=== PATIENT | male | born 1945 | race Caucasian/White ===

== ENCOUNTER 2018-04-08 05:21 | Inpatient (IN) | payer BC, OTHER ==
[2018-03-25 13:16] VITALS: Ht 177.8 cm; Wt 114.5 kg
--- NOTE | 2018-03-27 11:22 | PAT Medication Instructions ---
Service Date Mar 27, 2018. Current Home Medication List Cetirizine (Zyrtec), 10 MG PO PRN Cholecalciferol (Vitamin D3), 1 CAP PO QAM Diclofenac (Voltaren), 75 MG PO BID Finasteride (Proscar), 5 MG PO QAM Furosemide (Lasix), 20 MG PO QAM Gabapentin (Neurontin), 300 MG PO QID Hydrocodone/Acetaminophen 5MG/325MG ([place] 5MG/325MG), 1 TABLET PO Q6H PRN for N Multivitamin (Multivitamin), 1 TAB PO QAM Omeprazole (Prilosec), 40 MG PO QAM Probiotic Product (Probiotic), 1 TAB PO QAM Simvastatin (Zocor), 20 MG PO QPM Zolpidem Tartrate (Zolpidem Tartrate), 1 TAB PO HS [Amlodopine/Ator], 1 TAB PO QAM Medication Instructions For Your Scheduled Surgery -Check with your surgeon for instructions: Diclofenac (Voltaren), 75 MG PO BID - Hold the following medications the morning of surgery: Cetirizine (Zyrtec), 10 MG PO PRN Cholecalciferol (Vitamin D3), 1 CAP PO QAM Finasteride (Proscar), 5 MG PO QAM Furosemide (Lasix), 20 MG PO QAM Multivitamin (Multivitamin), 1 TAB PO QAM Probiotic Product (Probiotic), 1 TAB PO QAM - Take the following medications the morning of surgery with a sip of water: Gabapentin (Neurontin), 300 MG PO QID Hydrocodone/Acetaminophen 5MG/325MG ([place] 5MG/325MG), 1 TABLET PO Q6H PRN (if needed, may be taken up to four hours before surgery) Omeprazole (Prilosec), 40 MG PO QAM [Amlodopine/Atorvastatin], 1 TAB PO QAM *if this medication changes please call - Take the following medications as scheduled the night before surgery: Cetirizine (Zyrtec), 10 MG PO PRN (if needed) Gabapentin (Neurontin), 300 MG PO QID Hydrocodone/Acetaminophen 5MG/325MG ([place] 5MG/325MG), 1 TABLET PO Q6H PRN (if needed) Simvastatin (Zocor), 20 MG PO QPM Zolpidem Tartrate (Zolpidem Tartrate), 1 TAB PO HS If you have any questions please call us at [phone] or [phone] or [phone]
[2018-03-27 11:59] LABS: BASO % 0.3 %; BASO ABS # 0.02 K/uL (0-0.2); EOS % 1.2 %; EOS ABS # 0.07 K/uL (0-0.5); HEMATOCRIT 45.6 % (42-52); HEMOGLOBIN 15.3 g/dL (14.0-18.0); IG# 0.02 K/uL (0.00-0.02); LYMPH % 20.2 %; LYMPH ABS # 1.17 K/uL (1.2-3.4); MEAN CELL VOLUME 89.6 fL (80-100); MEAN CORPUSCULAR HEMOGLOBIN 30.1 pg (25-34); MEAN CORPUSCULAR HGB CONC 33.6 g/dl (32-36); MEAN PLATELET VOLUME 9.9 fL (7.4-10.4); MONO % 7.4 %; MONO ABS # 0.43 K/uL (0.11-0.59); NEUT % 70.6 %; NEUT ABS # 4.09 K/uL (1.4-6.5); PLATELET COUNT 197 K/uL (130-400); RED CELL DISTRIBUTION WIDTH CV 13.5 % (11.5-14.5); RED CELL DISTRIBUTION WIDTH SD 44.2 fL (36.4-46.3)
[2018-03-27 12:13] LABS: PTT PATIENT 25.5 SECONDS (21.0-31.0)
--- NOTE | 2018-03-27 12:16 | DIAGNOSTIC IMAGING REPORT ---
CHEST 2 VIEWS ROUTINE HISTORY: 72 years-old Male PAT preoperative exam. No acute chest complaints. COMPARISON: None available TECHNIQUE: PA and lateral views of the chest FINDINGS: Cardiac silhouette is upper limits of normal in size. Large retrocardiac opacity with central lucency suggests a large hiatal hernia with partially intrathoracic stomach. No pneumothorax, pleural effusion or overt pulmonary edema. Mild convex left curvature about the mid thoracic spine. Degenerative changes of the shoulders and spine are noted. IMPRESSION: 1. No acute process of the chest. 2. Large hiatal hernia with partially intrathoracic stomach. The above report was generated using voice recognition software. It may contain grammatical, syntax or spelling errors. Electronically signed by: Vaibhav Hoang M.D. 03/27/2018 12:15 PM Dictated Date/Time: 03/27/2018 12:13 PM
[2018-03-27 13:40] LABS: CALCIUM 9.2 mg/dl (8.5-10.1); CREATININE 0.87 mg/dl (0.60-1.40); POTASSIUM 4.1 mmol/L (3.5-5.1)
[~2018-04-08] VITALS: Ht 177.8 cm; Wt 114.5 kg
[2018-04-08] VITALS (8 sets, daily range): BP systolic 119–155; BP diastolic 78–97; PULSE 70–86; TEMP 36.2–36.8; O2SAT 95–99
[~2018-04-08 05:21] MED LIST: AMLO5CAP2 PO; CETI10TA84 PO; CHOL2000 PO; DICL-201 PO; FINA5TAB PO; FURO-85 PO; GABA-113 PO; HYDR-5688 PO; MISCCAP80 PO; MULT-506 PO; PRLSR20 PO; SIMV20TA5 PO; ZOLP10TA6 PO
[2018-04-08] MEDS ORDERED: LACTATED RINGER'S 1000ML 1,000 ML IV SCH (06:00)
[2018-04-08] MEDS ORDERED: GABAPENTIN 300 MG CAP PO SCH (06:00)
[2018-04-08] MEDS ORDERED: ACETAMINOPHEN 500 MG TAB PO SCH (06:00)
[2018-04-08] MEDS ORDERED: CeleBREX 200 MG CAP PO SCH (06:00)
[2018-04-08] MEDS ORDERED: CEFAZOLIN 2000MG IV PUSH 15 ML IV SCH (06:00)
[2018-04-08] MEDS ORDERED: MIDAZOLAM HCL 1 MG/ML 2ML VIAL ONE (06:41)
[2018-04-08] MEDS ORDERED: FENTANYL CITRATE INJ 50 MCG/1 ML 2 ML VIAL ONE (06:42)
[2018-04-08] MEDS ORDERED: LIDOCAINE HCL 2% 2 ML VIAL (20MG/ML) ONE (06:43)
[2018-04-08] MEDS ORDERED: PROPOFOL IV EMULSION 10 MG/ML 20 ML VIAL ONE (06:43)
[2018-04-08] MEDS ORDERED: ROCURONIUM BROMIDE 10 MG/ML 5 ML VIAL ONE ×2 (06:44→08:58)
[2018-04-08] MEDS ORDERED: DEXAMETHASONE SOD INJ 4 MG/ML VIAL ONE (06:47)
[2018-04-08] MEDS ORDERED: BACITRACIN 50000 UNIT VIAL ONE (06:51)
[2018-04-08] MEDS ORDERED: BUPIVACAINE/EPINEPHRINE 0.5% MPF 1:200,000 30 ML VIAL ONE (06:51)
[2018-04-08] MEDS ORDERED: BUPIVACAINE 0.5 % 5 MG/1 ML PF 10ML VIAL ONE ×2 (06:52→08:41)
[2018-04-08] MEDS ORDERED: BUPIVACAINE LIPOSOME 1/3% 266 MG/20 ML VIAL ONE ×2 (06:53→08:41)
[2018-04-08] MEDS ORDERED: SODIUM CHLORIDE 0.9% PF 50 ML VIAL ONE ×2 (06:53→08:41)
[2018-04-08] MEDS ORDERED: HYDROmorphone INJ 0.5 MG/0.5 ML SYR IV PRN ×2 (07:15→13:00)
[2018-04-08] MEDS ORDERED: FENTANYL CITRATE INJ 50 MCG/1 ML 2 ML VIAL IV PRN (07:15)
[2018-04-08] MEDS ORDERED: ONDANSETRON INJ 2 MG/ML 2 ML VIAL IV PRN ×2 (07:15→11:00)
[2018-04-08] MEDS ORDERED: ATROPINE SULFATE 0.1 MG/ML 5ML SYR IV PRN (07:15)
[2018-04-08] MEDS ORDERED: EpHEDrine SULFATE INJ 50 MG/ML AMP IV PRN (07:15)
--- NOTE | 2018-04-08 07:34 | History & Physical Bridge Note ---
H&P Re-Evaluation Bridge Note: I have examined the patient, reviewed the History & Physical and in the interval since the performance of the History & Physical I have noted the following changes of clinical significance: No changes noted
--- NOTE | 2018-04-08 07:35 | History and Physical ---
History & Physical Date Apr 08, 2018. Chief Complaint Back and leg pain History of Present Illness The patient is a 72 year old male with complaints of back and leg pain Additional History Hepatic Disease: No Endocrine Disorder: No Kidney Disease: No Hypertension: Yes Heart Disease: No Bleeding Tendencies: No Infectious Diseases: No Allergies Coded Allergies: No Known Allergies (Unverified , 04/08/18) Home Medications Scheduled Amlodipine/Benazepril (Lotrel 5MG/20MG), 1 CAP PO QAM Cetirizine (Zyrtec), 10 MG PO PRN Cholecalciferol (Vitamin D3), 1 CAP PO QAM Diclofenac (Voltaren), 75 MG PO BID Finasteride (Proscar), 5 MG PO QAM Furosemide (Lasix), 20 MG PO QAM Gabapentin (Neurontin), 300 MG PO QID Multivitamin (Multivitamin), 1 TAB PO QAM Omeprazole (Prilosec), 40 MG PO QAM Probiotic Product (Probiotic), 1 TAB PO QAM Simvastatin (Zocor), 20 MG PO QPM Zolpidem Tartrate (Zolpidem Tartrate), 1 TAB PO HS Scheduled PRN Hydrocodone/Acetaminophen 5MG/325MG ([place] 5MG/325MG), 1 TABLET PO Q6H PRN for N Physical Examination Skin: warm/dry, no rash Eyes: normal inspection, EOMI, sclerae normal ENT: normal ENT inspection, pharynx normal Head: normocephalic, atraumatic Neck: supple, no adenopathy, trachea midline Respiratory/Chest: lungs clear, normal breath sounds, no respiratory distress Cardiovascular: regular rate, rhythm, no edema, no murmur Abdomen / GI: normal bowel sounds, non tender Back: normal inspection Extremities: normal inspection, normal range of motion Neurologic/Psych: no motor/sensory deficits, alert, normal reflexes, oriented x 3 Diagnosis Lumbar spinal stenosis with neurogenic claudication Plan of Treatment L3-S1 decompression and fusion
[2018-04-08] MEDS ORDERED: BACITRACIN 50000 UNIT VIAL IR ONE (08:13)
[2018-04-08] MEDS ORDERED: BUPIVACAINE/EPINEPHRINE 0.25% 1:200,000 30 ML VIAL INJ ONE (08:14)
[2018-04-08] MEDS ORDERED: GLYCOPYRROLATE INJ 0.2 MG/ML VIAL ONE (08:18)
[2018-04-08] MEDS ORDERED: NEOSTIGMINE METHYLSULFATE 1 MG/ML 10ML VIAL ONE (08:18)
[2018-04-08] MEDS ORDERED: EpHEDrine SULFATE 50MG/5ML SYR ONE (08:30)
[2018-04-08] MEDS ORDERED: HYDROmorphone INJ 2 MG/ML SYR/VIAL ONE (09:18)
[2018-04-08] MEDS ORDERED: FLOSEAL HEMOSTATIC MATRIX 10ML TOP ONE (10:27)
--- NOTE | 2018-04-08 10:48 | [facility] Operative Report ---
Operative Report Operative Date Apr 08, 2018. Pre-Operative Diagnosis Lumbar spinal stenosis with neurogenic claudication Post-Operative Diagnosis Lumbar spinal stenosis with neurogenic claudication Procedure(s) Performed 1. Lumbar decompression mucosectomy foraminotomies L2-3 L3-4 L4-5 L5-S1. #2 posterior spinal fusion L3-4 L4-5 L5-S1. #3 posterior posterior segmental instrumentation L3-4 L4-5 L5-S1. #4 interbody fusion L4-5 L5-S1. #5 placement of titanium 9 x 26 mm cage at L4-5 and 12 x 26 at L5-S1. #6 placement of local autograft in the posterior gutters. #7 placement of infuse collagen sponge master graft the posterior gutters and ostial amp in the interbody space. Surgeon Sand Mixer Machine Surgeon(s) VANDANA Blackman Estimated Blood Loss 600ML Findings Severe spinal stenosis Specimens None Anesthesia Type General Description of Procedure Patient was met with preoperatively case discussed all questions addressed. After informed consent obtained patient was taken to the operative suite underwent intubation and placed in prone position injection table on top of the Ozzie frame. All bony promises well-padded eyes inspected to ensure no external pressure placed upon the. This point the lumbar spine was prepped and draped in normal sterile fashion. Sharp dissection the assistance of fluoroscopy was performed down to and exposing the lamina and transverse processes of L3-L4-L5 and sacral ala bilaterally. From caudocephalad fashion complete laminectomy of L5 for 3 was performed as well as partial laminectomy of L2 addressing severe lateral recess and foraminal disease. Pedicle screws were then placed 3 L4-L5 and sacral ala bilaterally. Through a transforaminal approach on the left complete discectomy of L5-S1 was performed endplates could to subcortical bleeding bone and a 12 x 26 mm titanium cage with ostium bone graft tapped in position. Then proceeded L4-5 and again through a transfer approach and left complete discectomy performed endplates created to subcortical bleeding bone and 9 x 26 mm titanium cage filled with ostium bone graft tapped in position. The rods were then placed compressed locked in final position bilaterally. The transverse processes of L3-L4-L5 and sacral ala burred to subcortical bleeding bone. Infuse collagen sponge master graft local autograft was placed in the posterior gutters. Cross-link locked in position. Approximately 160 cc of Exparel placed in the musculature and a 15 round LUCI drain inserted. Incision was then closed with 1 Vicryl fascia 2-0 Vicryl substantially of 4 Monocryl Jasmina Robertson was present throughout the entire procedure involved in patient positioning complex portions of the surgery and fashion closure. I attest to the content of the Intraoperative Record and any orders documented therein. Any exceptions are noted below.
[2018-04-08] MEDS ORDERED: METOCLOPRAMIDE HCL INJ 5 MG/ML 2 ML VIAL IV PRN (11:00)
[2018-04-08] MEDS ORDERED: MAGNESIUM HYDROXIDE SUSP 30 ML UDC PO PRN (11:00)
[2018-04-08] MEDS ORDERED: FAMOTIDINE 20 MG TAB PO PRN (11:00)
[2018-04-08] MEDS ORDERED: SOD PHOSPHATE/SOD BIPHOSPHATE ENEMA 132 ML BTL PR PRN (11:00)
[2018-04-08] MEDS ORDERED: DO NOT ADMINISTER PNEUMOCOCCAL VACCINE PRN (11:00)
[2018-04-08] MEDS ORDERED: DO NOT ADMINISTER FLU VACCINE PRN (11:00)
[2018-04-08] MEDS ORDERED: LORAZEPAM INJ 0.5 MG in SYRINGE 0.75 ML IV PRN (11:00)
[2018-04-08] MEDS ORDERED: NALOXONE HCL 0.4 MG/1 ML VIAL/CARP IV PRN (11:00)
[2018-04-08] MEDS ORDERED: PROMETHAZINE HCL INJ 12.5 MG in SODIUM CHLORIDE 0.9% 50ML 50 ML IV PRN (11:00)
[2018-04-08] MEDS ORDERED: ACETAMINOPHEN IV 100 ML IV PRN (11:00)
[2018-04-08] MEDS ORDERED: hydrOXYzine HCL 25 MG TAB PO PRN (11:00)
[2018-04-08] MEDS ORDERED: LORAZEPAM 0.5 MG TAB PO PRN (11:00)
[2018-04-08] MEDS ORDERED: CETIRIZINE HCL 10 MG TAB PO PRN (11:00)
[2018-04-08] MEDS ORDERED: BISACODYL 10 MG SUPP PR PRN (11:00)
[2018-04-08] MEDS ORDERED: ALUMINUM/MAGNESIUM SUSP 30 ML UDC PO PRN (11:00)
--- NOTE | 2018-04-08 11:00 | DIAGNOSTIC IMAGING REPORT ---
LUMBAR SPINE 2 OR 3 VIEW CLINICAL HISTORY: L3-S1 DECOMPRESSION AND FUSION COMPARISON STUDY: No previous studies for comparison. Fluoroscopy time: 28.3 seconds. FINDINGS: 3 fluoroscopic images demonstrate L4-L5 and L5-S1 discectomies with interbody spacer placement. Posterior decompression is noted with bilateral pedicle screws at the L3, L4, L5 and S1 levels with interconnecting rods. IMPRESSION: Fluoroscopic images demonstrating L4-L5 and L5-S1 discectomies with posterior decompression and L3-S1 bilateral pedicle screw fusion. Electronically signed by: Kenji Cardoso M.D. 04/08/2018 10:58 AM Dictated Date/Time: 04/08/2018 10:57 AM
[2018-04-08] MEDS: SODIUM CHLORIDE 0.9% 1000ML 1,000 ML IV SCH ×3 (12:40→23:53)
--- NOTE | 2018-04-08 13:10 | Anesthesiology Progress Note ---
Anesthesia Post Op Note Date & Time Apr 08, 2018 at 13:10 Vital Signs Pain Intensity: 5.0 Vital Signs Past 12 Hours Date Time Temp Pulse Resp B/P (MAP) Pulse Ox O2 Delivery O2 Flow Rate FiO2 04/08/18 12:37 Nasal Cannula 4.0 04/08/18 12:33 97 Nasal Cannula 4.0 04/08/18 12:28 36.2 77 18 155/78 (103) 99 Nasal Cannula 4.0 04/08/18 12:00 36.5 73 18 136/90 (105) 97 Nasal Cannula 4.0 04/08/18 11:45 37.1 67 16 145/83 97 Oxymask 8 04/08/18 11:35 70 16 132/79 97 Oxymask 8 04/08/18 11:25 71 16 125/90 98 Oxymask 8 04/08/18 11:15 68 16 134/73 96 Oxymask 15 04/08/18 11:07 37.6 75 16 114/72 93 Oxymask 15 04/08/18 06:06 36.6 70 20 135/95 96 Room Air Notes Mental Status: alert / awake / arousable, participated in evaluation Pt Amnestic to Procedure: Yes Nausea / Vomiting: adequately controlled Pain: adequately controlled Airway Patency, RR, SpO2: stable & adequate BP & HR: stable & adequate Hydration State: stable & adequate Anesthetic Complications: no major complications apparent
[2018-04-08] MEDS: GABAPENTIN 300 MG CAP PO SCH ×3 (13:22→21:36)
--- NOTE | 2018-04-08 14:20 | Medical Consult ---
Consultation Date of Consultation: Apr 08, 2018. Attending Physician: Teddy Jiménez D.O. Reason for Consultation: post op medical management History of Present Illness This is a 72yo M with a PMH of HTN, HLD, GERD and lumbar stenosis who is POD #0 s/p L3-S1 decompression fusion by Dr. Jiménez. Patient is doing well post- operatively. States that back pain is a 6/10 but had just been given pain medication by nurse. Denies any fever, chills, lightheadedness, headache, visual changes, sore throat, CP, SOB, abdominal pain, nausea, vomiting, dysuria or LE swelling. PCP is Dr. Mohr in [place]. Denies any personal history of heart disease, DM II or DVT/PE. States that he just had an echo performed pre- operatively due to a new systolic murmur. Was told there was "nothing to worry about" with echo results. Past Medical/Surgical History Reported Home Medications Medications Dose Route/Sig Max Daily Dose Days Date Category Dose Instructions Lotrel 5MG/20MG (Amlodipine/Benazepril HCl) 5 Mg/20 Mg Cap 1 Cap PO QAM 04/05/18 Reported Zyrtec (Cetirizine HCl) 10 Mg Tab 10 Mg PO PRN 03/25/18 Reported Vitamin D3 (Cholecalciferol) 2,000 Unit Cap 1 Cap PO QAM 90 03/25/18 Reported Probiotic (Probiotic Product) 1 Cap Cap 1 Tab PO QAM 03/25/18 Reported Multivitamin (Multivitamins) Tab 1 Tab PO QAM 03/25/18 Reported Lasix (Furosemide) 20 Mg Tab 20 Mg PO QAM 03/25/18 Reported Neurontin (Gabapentin) 300 Mg Cap 300 Mg PO QID 03/25/18 Reported Zolpidem Tartrate 10 Mg Tab 1 Tab PO HS 30 03/25/18 Reported Zocor (Simvastatin) 20 Mg Tab 20 Mg PO QPM 03/25/18 Reported Prilosec (Omeprazole) 20 Mg Capcr 40 Mg PO QAM 03/25/18 Reported [place] 5MG/325MG (Acetaminophen/Hydrocodone Bitart) Tab 1 Tablet PO Q6H PRN 03/25/18 Reported PRN PAIN Proscar (Finasteride) 5 Mg Tab 5 Mg PO QAM 03/25/18 Reported Voltaren (Diclofenac Sodium) 75 Mg Tabcr 75 Mg PO BID 03/25/18 Reported WITH FOOD Social History Smoking Status: Former Smoker Alcohol Use: occasionally Marital Status: Housing Status: lives with significant other Allergies Coded Allergies: No Known Allergies (Unverified , 04/08/18) Home Medications Medical Problems: (1) BPH (benign prostatic hyperplasia) Status: Chronic (2) GERD (gastroesophageal reflux disease) Status: Chronic (3) HLD (hyperlipidemia) Status: Chronic (4) HTN (hypertension) Status: Chronic (5) Lumbar stenosis with neurogenic claudication Status: Chronic Surgical Problems: (1) H/O total hip arthroplasty Status: Resolved (2) H/O total knee replacement Status: Resolved (3) History of appendectomy Status: Resolved Current Inpatient Medications Current Inpatient Medications Medications (Trade) Dose Ordered Sig/Amara Route Start Time Stop Time Status Last Admin Dose Admin Ondansetron HCl (Zofran Inj) 4 mg ONE PRN IV 04/08/18 07:15 05/08/18 07:14 Promethazine HCl 12.5 mg/Sodium Chloride 50.5 ml @ 202 mls/hr Q6H PRN IV 04/08/18 11:00 05/08/18 10:59 Ondansetron HCl (Zofran Inj) 4 mg Q6H PRN IV 04/08/18 11:00 05/08/18 10:59 Metoclopramide HCl (Reglan Inj) 10 mg Q6H PRN IV 04/08/18 11:00 05/08/18 10:59 Lorazepam (Ativan Tab) 0.5 mg Q8H PRN PO 04/08/18 11:00 05/08/18 10:59 Lorazepam 0.5 mg/ Syringe 1 ml @ 1 mls/min Q8H PRN IV 04/08/18 11:00 05/08/18 10:59 Pneumococcal Polysaccharide Vaccine 1 ea PRN PRN N/A 04/08/18 11:00 05/08/18 10:59 Influenza Virus Vacc Triv Types A&B 1 ea PRN PRN N/A 04/08/18 11:00 05/08/18 10:59 Polyethylene (Miralax Powder Packet) 17 gm Q6 PO 04/10/18 06:00 05/10/18 05:59 Bisacodyl (Dulcolax Supp) 10 mg DAILY PRN VA 04/08/18 11:00 05/08/18 10:59 Magnesium Hydroxide (Milk Of Magnesia Susp) 30 ml DAILY PRN PO 04/08/18 11:00 05/08/18 10:59 Hydromorphone HCl (Dilaudid Inj) 0.5-1mg prn moder... Q3H PRN IV 04/08/18 13:00 04/22/18 12:59 Oxycodone HCl (Roxicodone Immediate Rel Tab) 5-10mg prn moderate to sev... Q4H PRN PO 04/08/18 13:00 04/22/18 12:59 Cefazolin Sodium 2000 mg/Syringe 15 ml @ 3.75 mls/ min Q8H IV 04/08/18 16:00 04/09/18 00:03 Sodium Chloride 1,000 ml @ 150 mls/hr Q6H40M IV 04/08/18 10:48 05/08/18 10:47 04/08/18 12:40 150 MLS/HR Acetaminophen (Tylenol Tab) 1,000 mg Q8H PRN PO 04/08/18 11:00 05/08/18 10:59 Acetaminophen 100 ml @ 400 mls/hr Q8H PRN IV 04/08/18 11:00 05/08/18 10:59 Naloxone HCl (Narcan Inj) 0.1 mg Q5M PRN IV 04/08/18 11:00 05/08/18 10:59 Senna/Docusate Sodium (Senokot S Tab) 2 tab HS PO 04/08/18 21:00 05/08/18 20:59 Sodium Biphosphate/ Sodium Phosphate (Fleet Enema) 132 ml ONE PRN VA 04/08/18 11:00 05/08/18 10:59 Hydroxyzine HCl (Vistaril Tab) 25 mg Q8H PRN PO 04/08/18 11:00 05/08/18 10:59 Al Hydroxide/Mg Hydroxide (Maalox Susp) 30 ml Q6H PRN PO 04/08/18 11:00 05/08/18 10:59 Famotidine (Pepcid Tab) 20 mg Q12 PRN PO 04/08/18 11:00 8/22/18 10:59 Diphenhydramine HCl (Benadryl Cap) 25 mg Q6H PRN PO 04/08/18 11:00 05/08/18 10:59 Cetirizine HCl (zyrTEC TAB) 10 mg DAILY PRN PO 04/08/18 11:00 05/08/18 10:59 Finasteride (Proscar Tab) 5 mg QAM PO 04/09/18 09:00 05/09/18 08:59 Furosemide (Lasix Tab) 20 mg QAM PO 04/09/18 09:00 05/09/18 08:59 Gabapentin (Neurontin Cap) 300 mg QID PO 04/08/18 13:00 05/08/18 12:59 04/08/18 13:22 300 MG Multivitamins (Multivitamin Tab) 1 tab QAM PO 04/09/18 09:00 05/09/18 08:59 Simvastatin (Zocor Tab) 20 mg QPM PO 04/08/18 21:00 05/08/18 20:59 Zolpidem Tartrate (Ambien Tab) 10 mg HS PO 04/08/18 21:00 05/08/18 20:59 Amlodipine Besylate (Norvasc Tab) 5 mg QAM PO 04/09/18 09:00 05/09/18 08:59 Pantoprazole Sodium (Protonix Tab) 40 mg QAM PO 04/09/18 09:00 05/09/18 08:59 Enalapril Maleate (Vasotec Tab) 20 mg DAILY PO 04/09/18 09:00 05/09/18 08:59 Review of Systems Constitutional: No fever, No chills, No weakness, No fatigue Eyes: No worsening of vision Respiratory: No cough, No wheezing, No shortness of breath, No dyspnea on exertion Cardiovascular: No chest pain, No edema, No palpitations Abdomen: No pain, No nausea, No vomiting, No diarrhea, No constipation, No GI bleeding Musculoskeletal: + problem reported (resting left hand tremor), No joint pain, No muscle pain Neurologic: No weakness, No numbness/tingling Integumentary: No rash Physical Exam Date Time Temp Pulse Resp B/P (MAP) Pulse Ox O2 Delivery O2 Flow Rate FiO2 04/08/18 13:00 36.8 85 18 133/96 (108) 96 Nasal Cannula 4.0 7/23/18 12:37 Nasal Cannula 4.0 04/08/18 12:33 97 Nasal Cannula 4.0 04/08/18 12:28 36.2 77 18 155/78 (103) 99 Nasal Cannula 4.0 04/08/18 12:00 36.5 73 18 136/90 (105) 97 Nasal Cannula 4.0 04/08/18 11:45 37.1 67 16 145/83 97 Oxymask 8 04/08/18 11:35 70 16 132/79 97 Oxymask 8 04/08/18 11:25 71 16 125/90 98 Oxymask 8 04/08/18 11:15 68 16 134/73 96 Oxymask 15 04/08/18 11:07 37.6 75 16 114/72 93 Oxymask 15 04/08/18 06:06 36.6 70 20 135/95 96 Room Air General Appearance: WD/WN, no apparent distress, + obese Head: normocephalic, atraumatic Eyes: normal inspection, PERRL, sclerae normal ENT: normal ENT inspection, hearing grossly normal, pharynx normal (moist mucous membranes ) Neck: supple, thyroid normal, trachea midline Respiratory/Chest: chest non-tender, lungs clear, normal breath sounds, no respiratory distress, no accessory muscle use Cardiovascular: regular rate, rhythm, normal peripheral pulses, + systolic murmur Abdomen/GI: non tender, soft, no organomegaly Back: normal inspection, + pertinent finding (Lumbar surgical dressing clean, dry, intact. Drain visualized) Extremities/Musculoskelatal: normal inspection, no calf tenderness, no pedal edema, + pertinent finding (SCDs) Neurologic/Psych: no motor/sensory deficits, alert, normal mood/affect, oriented x 3 Skin: normal color, warm/dry, no rash Laboratory Results Pertinent pre-op labs (03/27/18): Item Value Date Time White Blood Count 5.80 K/uL 03/27/18 1137 Hemoglobin 15.3 g/dL 03/27/18 1137 Platelet Count 197 K/uL 03/27/18 1137 Sodium Level 138 mmol/L 03/27/18 1137 Potassium Level 4.1 mmol/L 03/27/18 1137 Chloride Level 104 mmol/L 03/27/18 1137 Carbon Dioxide Level 28 mmol/L 03/27/18 1137 Anion Gap 6.0 mmol/L 03/27/18 1137 Blood Urea Nitrogen 16 mg/dl 03/27/18 1137 Creatinine 0.87 mg/dl 03/27/18 1137 Estimated GFR (Non- 86.8 03/27/18 1137 Assessment & Plan This is a 72yo M with a PMH of HTN, HLD, GERD and lumbar stenosis who is POD #0 s/p L3-S1 decompression fusion by Dr. Jiménez. Lumbar stenosis s/p decompression fusion: -POD#0 s/p L3-S1 decompression fusion by Dr. Jiménez -Doing well post-operatively -Per ortho for pain control, wound care, anticoagulation and activities -Monitor H&H, continue incentive spirometry, PT/OT when appropriate HTN -Normotensive now -Continue amlodipine/benazepril tomorrow AM -Hold AM Lasix, re-evaluate fluid status HLD -Continue statin GERD -Cont PPI BPH -Continue Proscar PCP: Fani Street) Dispo: Per ortho Patient seen in collaboration with Dr. Pearce. Please see addendum. Attending addendum The patient was seen and examined in medical floor He is a status post lumbar decompression and fusion He denies any symptoms other than some back pain and numbness involving the legs His preop labs and studies evaluated Denies any acute symptoms as of today On examination No apparent distress at rest Hemodynamically stable Chest-clear to auscultate bilaterally Heart-regular, no murmur appreciated Abdomen-benign, nontender, no organomegaly Extremities-trace edema bilaterally Preoperative labs, EKG and imaging studies reviewed Has history of hypertension, hyperlipidemia and prostatic hypertrophy-without any acute symptoms Agree with assessment and plan as outlined above Dr. Andrea Pearce Thank you for this consultation. We will follow the patient with you during their hospital stay. You can reach a member of the [facility] Hospitalist Team 09/04 via pager @ .
[2018-04-08] MEDS: OXYCODONE HCL IR 5 MG TAB (IMMEDIATE RELEASE) PO PRN ×2 (15:55→19:45)
[2018-04-08] MEDS: CEFAZOLIN IV 2,000 MG in SYRINGE 0 ML IV SCH ×2 (15:56→23:53)
[2018-04-08] MEDS ORDERED: AMLO1CAP PO (16:16)
[2018-04-08] MEDS: DOCUSATE SODIUM/SENNA 50/8.6MG TAB PO SCH (21:36)
[2018-04-08] MEDS: SIMVASTATIN 20 MG TAB PO SCH (21:36)
[2018-04-08] MEDS: ZOLPIDEM TARTRATE 10 MG TAB PO SCH (21:56)
[2018-04-09] MEDS: OXYCODONE HCL IR 5 MG TAB (IMMEDIATE RELEASE) PO PRN ×4 (00:03→18:39)
[2018-04-09 03:00] VITALS: BP 104/67; PULSE 81; TEMP 37; O2SAT 95
[2018-04-09] MEDS: SODIUM CHLORIDE 0.9% 1000ML 1,000 ML IV SCH (05:57)
[2018-04-09] MEDS ORDERED: NURSING VERBAL MED ORDER ONE (06:00)
[2018-04-09 06:48] LABS: HEMATOCRIT 37.2 % (42-52); HEMOGLOBIN 11.9 g/dL (14.0-18.0); IG# 0.03 K/uL (0.00-0.02); LYMPH % 8.5 %; LYMPH ABS # 0.93 K/uL (1.2-3.4); MEAN CELL VOLUME 89.9 fL (80-100); MEAN CORPUSCULAR HEMOGLOBIN 28.7 pg (25-34); MEAN PLATELET VOLUME 10.1 fL (7.4-10.4); NEUT % 81.2 %; NEUT ABS # 8.94 K/uL (1.4-6.5); PLATELET COUNT 203 K/uL (130-400); RED CELL DISTRIBUTION WIDTH CV 13.8 % (11.5-14.5); RED CELL DISTRIBUTION WIDTH SD 45.7 fL (36.4-46.3)
[2018-04-09 07:08] VITALS: BP 119/80; PULSE 84; TEMP 36.9; O2SAT 92
[2018-04-09 07:25] LABS: CALCIUM 8.4 mg/dl (8.5-10.1); CREATININE 0.83 mg/dl (0.60-1.40); POTASSIUM 4.3 mmol/L (3.5-5.1)
[2018-04-09] MEDS: BENAZEPRIL HCL 10 MG TAB PO SCH (08:25)
[2018-04-09] MEDS: GABAPENTIN 300 MG CAP PO SCH ×4 (08:26→21:13)
[2018-04-09] MEDS ORDERED: FUROSEMIDE 20 MG TAB PO SCH (09:00)
[2018-04-09] MEDS ORDERED: ENALAPRIL MALEATE 10 MG TAB PO SCH (09:00)
--- NOTE | 2018-04-09 09:23 | Anesthesiology Progress Note ---
Anesthesia Post Op Note Date & Time Apr 09, 2018 at 09:22 Vital Signs Pain Intensity: 7.0 Vital Signs Past 12 Hours Date Time Temp Pulse Resp B/P (MAP) Pulse Ox O2 Delivery O2 Flow Rate FiO2 04/09/18 07:08 36.9 84 18 119/80 (93) 92 Room Air 04/09/18 03:00 37.0 81 16 104/67 (79) 95 Room Air 04/08/18 23:57 Room Air 04/08/18 23:01 36.8 79 16 119/81 (94) 95 Room Air Notes Mental Status: alert / awake / arousable, participated in evaluation Pt Amnestic to Procedure: Yes Nausea / Vomiting: adequately controlled Pain: adequately controlled, improving with treatment Airway Patency, RR, SpO2: stable & adequate BP & HR: stable & adequate Hydration State: stable & adequate Anesthetic Complications: no major complications apparent
[2018-04-09] MEDS: MULTIVITAMIN TAB PO SCH (10:02)
[2018-04-09] MEDS: AMLODIPINE BESYLATE 5 MG TAB PO SCH (10:02)
[2018-04-09] MEDS: FINASTERIDE 5 MG TAB PO SCH (10:03)
[2018-04-09] MEDS: PANTOprazole SOD 40 MG TAB PO SCH (10:03)
[2018-04-09] MEDS ORDERED: RXC5 PO (10:45)
--- NOTE | 2018-04-09 10:46 | Discharge Instructions ---
Discharge Instructions Date of Service Apr 09, 2018. Admission Reason for Admission: Lumbar Spinal Stenosis Discharge Discharge Diagnosis / Problem: lumbar stenosis Discharge Goals Goal(s): Improve function Activity Recommendations Activity Limitations: per Instructions/Follow-up section . Instructions / Follow-Up Instructions / Follow-Up ACTIVITY RECOMMENDATIONS: SELF CARE INSTRUCTIONS AFTER THORACIC/LUMBAR FUSIONS 1. You may walk to your tolerance. It is good exercise for your legs and back. Expect some back and intermittent leg aches and pains. 2. You may perform "counter-top" level activities (make a sandwich, kadeem with a project, etc.). 3. No bending or lifting of more than 10 pounds or back twisting of any nature (roll like a log when turning in bed). 4. You may ride in a car for 20-30 minutes at a time. No driving until after your first visit with your doctor. 5. Frequent changes of position and restricting sitting to 30 minutes at a time will help limit the amount of back spasms and stiffness you may experience. 6. You may discontinue the use of ambulatory aids (cane, crutches, etc.) once your strength and confidence allow. 7. You may dip stand loader the shower and let water strike your incision when you arrive home at least once daily. Do not take a tub bath, sit in a hot tub or go into a swimming pool until after your first recheck in the office. SPECIAL CARE INSTRUCTIONS: VERY IMPORTANT TO READ AND REVIEW A. Your surgical incision has been closed with a cosmetic suture under the skin that will dissolve in about 6 weeks. In 14 days, you can use a pair of clean scissors and cut the suture that is left outside of the skin at the ends of your incision. 1. The small skin tapes can be removed 7 days after surgery if they have not fallen off by that point. 2. You may keep the wound open to air as much as possible to promote healing after post-op day number 5 unless told otherwise by your doctor. 3. If you think the wound looks like it is becoming infected (redness or worsening drainage) and/or you are experiencing fever, chill or worsening back pain and muscle spasms, contact the office so that we may evaluate you as soon as possible. B. Complications are uncommon, but please contact us if you have any signs or symptoms of: 1. wound infection (fever higher than 102.5 degrees F, redness, separation of wound, drainage, or increasing pain from the incision) 2. blood clots in legs (pain, swelling, redness and warmth in legs) 3. urinary tract infection (fever higher than 102.5 degrees F, burning upon urination or increased frequency of urination) 4. nerve problems (inability to walk on your toes or heels, numbness, loss of bowel or bladder control) 5. any other symptoms that concern you C. Please call the office at if you have any concerns or questions about your operation or recovery. D. No smoking! Smoking drastically decreases the chance of a solid fusion. E. Do not take any anti-inflammatory medications (Indocin, Advil, Motrin, Aspirin, Naprosyn, etc.) as these may inhibit the chance of a solid fusion. Tylenol is okay to take for pain. MANAGING PAIN AFTER SPINAL SURGERY 1. Narcotic medication is intended for short-term use and will be provided for surgical pain. Surgical pain usually lasts for a period of 4-6 weeks. Narcotic medication includes Percocet, Vicodin, Darvocet, Tylenol #3 or Lortab. 2. Longer-term pain is more appropriately treated with non-narcotic medication such as Tylenol ES. 3. Muscle spasm is not appropriately treated with narcotics. Muscle relaxers such as Soma, Flexeril or Skelaxin can be used along with Tylenol ES. 4. Remember that we all live with some "aches and pains". This is not unusual or uncommon after an injury or as we get older. a. Back pain is expected and may include muscle spasms for 4 to 6 weeks after surgery. The pain should gradually improve. If the pain worsens for no apparent reason, please contact the office. b. Intermittent leg pain may also be experienced and should not be concerned about unless it worsens for no apparent reason. If so, please contact the office. 5. We will provide appropriate medication within the normal guidelines of their prescribed use. We will also be very cautious and aware of potential abuse and extended duration of patients' medication needs. a. Pain medications are for your comfort and to assist with sleep and rest so that the tissue can heal. They are not provided in order to return to normal activity and should not be used through the day. To do so or worsening pain at night can result from ongoing tissue damage and development of tolerance to the prescribed medicine. 6. Please allow 2-3 days to process refills. Prescriptions will not be mailed but must be picked up at the office. FOLLOW UP VISIT: Keep your scheduled follow-up appointment. Any questions, please call the office at . Current Hospital Diet Patient's current hospital diet: Regular Diet Discharge Diet Recommended Diet: Regular Diet Procedures Procedures Performed: 1. Lumbar decompression mucosectomy foraminotomies L2-3 L3-4 L4-5 L5-S1. #2 posterior spinal fusion L3-4 L4-5 L5-S1. #3 posterior posterior segmental instrumentation L3-4 L4-5 L5-S1. #4 interbody fusion L4-5 L5-S1. #5 placement of titanium 9 x 26 mm cage at L4-5 and 12 x 26 at L5-S1. #6 placement of local autograft in the posterior gutters. #7 placement of infuse collagen sponge master graft the posterior gutters and ostial amp in the interbody space. Pending Studies Studies pending at discharge: no Medical Emergencies . Who to Call and When: Medical Emergencies: If at any time you feel your situation is an emergency, please call 911 immediately. . Non-Emergent Contact Non-Emergency issues call your: Primary Care Provider . "Provider Documentation" section prepared by Teddy Jiménez. .
[2018-04-09 11:38] VITALS: BP 100/65; PULSE 84; O2SAT 97
--- NOTE | 2018-04-09 12:59 | Progress Note ---
Progress Note Date of Service Apr 09, 2018. Progress Note Patient's leg symptoms are markedly improved. His back pain is controlled. On exam he is in a chair at the bedside is good strength testing appears comfortable. Assessment status post multilevel lumbar depression treatment plan at this time will continue physical therapy advance his bowel regimen anticipate home in the next few days.
--- NOTE | 2018-04-09 14:34 | Hospitalist Progress Note ---
Hospitalist Progress Note Date of Service Apr 09, 2018. (Danielle Pinedo PA-C) Subjective Pt evaluation today including: conversation w/ patient, physical exam, chart review, lab review Pt seen, sitting up in bedside chair. Pt states pain controlled. Denies extremity pain or paresthesias. He reports ambulated this morning. Normal appetite. No BM today, +flatus. Denies fever/chills, N/V/D, DEVLIN, dizziness, CP, SOB, abdominal pain. (Danielle Pinedo PA-C) Objective Vital Signs Date Time Temp Pulse Resp B/P (MAP) Pulse Ox O2 Delivery O2 Flow Rate FiO2 04/09/18 11:38 84 16 100/65 (77) 97 Room Air 04/09/18 09:32 Room Air 04/09/18 07:08 36.9 84 18 119/80 (93) 92 Room Air 04/09/18 03:00 37.0 81 16 104/67 (79) 95 Room Air 04/08/18 23:57 Room Air 04/08/18 23:01 36.8 79 16 119/81 (94) 95 Room Air 04/08/18 15:20 Nasal Cannula 4.0 04/08/18 15:00 36.5 85 18 129/90 (103) 97 Nasal Cannula 4.0 04/08/18 14:00 36.7 86 18 141/97 (112) 99 Nasal Cannula 4.0 04/08/18 13:00 36.8 85 18 133/96 (108) 96 Nasal Cannula 4.0 (Danielle Pinedo, FRANCISCO) Physical Exam General Appearance: WD/WN, no apparent distress ENT: hearing grossly normal, pharynx normal, + pertinent finding (mucous membranes moist) Neck: supple, trachea midline Respiratory/Chest: lungs clear, normal breath sounds, no respiratory distress Cardiovascular: regular rate, rhythm Abdomen: normal bowel sounds, non tender, soft Extremities: non-tender, normal inspection, no pedal edema Neurologic/Psychiatric: alert, normal mood/affect, oriented x 3 Skin: warm/dry, + pertinent finding (back: +drain in place with bloody drainage ) (Danielle Pinedo, JONAC) Laboratory Results Last 24 Hours Test 04/09/18 06:25 White Blood Count 11.00 K/uL Red Blood Count 4.14 M/uL Hemoglobin 11.9 g/dL Hematocrit 37.2 % Mean Corpuscular Volume 89.9 fL Mean Corpuscular Hemoglobin 28.7 pg Mean Corpuscular Hemoglobin Concent 32.0 g/dl Platelet Count 203 K/uL Mean Platelet Volume 10.1 fL Neutrophils (%) (Auto) 81.2 % Lymphocytes (%) (Auto) 8.5 % Monocytes (%) (Auto) 10.0 % Eosinophils (%) (Auto) 0.0 % Basophils (%) (Auto) 0.0 % Neutrophils # (Auto) 8.94 K/uL Lymphocytes # (Auto) 0.93 K/uL Monocytes # (Auto) 1.10 K/uL Eosinophils # (Auto) 0.00 K/uL Basophils # (Auto) 0.00 K/uL RDW Standard Deviation 45.7 fL RDW Coefficient of Variation 13.8 % Immature Granulocyte % (Auto) 0.3 % Immature Granulocyte # (Auto) 0.03 K/uL Sodium Level 140 mmol/L Potassium Level 4.3 mmol/L Chloride Level 107 mmol/L Carbon Dioxide Level 26 mmol/L Anion Gap 8.0 mmol/L Blood Urea Nitrogen 12 mg/dl Creatinine 0.83 mg/dl Est Creatinine Clear Calc Drug Dose 103.5 ml/min Estimated GFR () 102.6 Estimated GFR (Non- 88.5 BUN/Creatinine Ratio 14.5 Random Glucose 130 mg/dl Calcium Level 8.4 mg/dl (Danielle Pinedo PA-C) Assessment and Plan POST OP DAY #1 S/P LUMBAR DECOMPRESSION FUSION BY DR HAMILTON Reports pain controlled at this time. Has been up to ambulate -Hgb: 11.9 from 15 pre-op, monitor -pain management per ortho -wound management per ortho -PT/OT as appropriate -incentive spirometry HTN Stable -continue amlodipine/benazepril -lasix on hold currently HLD -continue statin GERD -continue PPI BPH -continue Proscar DVT Prophylaxis -per ortho Disposition per surgical team Follows with Dr Mohr in [place] for routine care Pt was seen with Dr Perez. See addendum (Danielle Pinedo PA-C) Attending addendum Patient seen and examined care coordinated with Yu Pinedo PA-C Labs reviewed 72-year-old male status post #1 lumbar decompression fusion -Recovering well postop Pain well controlled Participating in PT OT Continue management as per spinal orthopedics ACUTE BLOOD LOSS ANEMIA Hemoglobin dropped from baseline 15-to 11 due to Postop status/acute blood loss during surgery Patient does not have any symptoms of dizzy spell, lightheadedness or dyspnea on exertion Monitor H&H No indication for transfusion LEUKOCYTOSIS Possible secondary to intraoperative steroid No evidence of infection Repeat CBC in a.m. HYPERTENSION BP borderline low Patient will continue with amlodipine/benazepril with holding parameters Was on Lasix 20 mg p.o. daily kept on hold post surgery Renal function remained stable Lasix can be resumed tomorrow with holding parameters for hypotension Please refer to further documentation by Sunshine Pinedo PA-C for discussion of other chronic issues Dimple Perez MD (Dimple Perez M.D.)
[2018-04-09 15:23] VITALS: BP 102/65; PULSE 80; TEMP 36.7; O2SAT 95
[2018-04-09] MEDS: ACETAMINOPHEN 500 MG TAB PO PRN (15:30)
[2018-04-09] MEDS: SIMVASTATIN 20 MG TAB PO SCH (21:13)
[2018-04-09] MEDS: DOCUSATE SODIUM/SENNA 50/8.6MG TAB PO SCH (21:13)
[2018-04-09] MEDS: ZOLPIDEM TARTRATE 10 MG TAB PO SCH (21:15)
[2018-04-09 23:11] VITALS: BP 109/73; PULSE 73; TEMP 37; O2SAT 93
[2018-04-10] MEDS: OXYCODONE HCL IR 5 MG TAB (IMMEDIATE RELEASE) PO PRN ×5 (00:26→21:28)
[2018-04-10] MEDS: ACETAMINOPHEN 500 MG TAB PO PRN ×2 (03:06→14:40)
[2018-04-10] MEDS: POLYETHYLENE (MIRALAX) 17 GM PACK PO SCH ×2 (06:23→12:00)
[2018-04-10 06:37] VITALS: BP 136/79; PULSE 83; TEMP 36.7; O2SAT 95
[2018-04-10 07:15] LABS: HEMATOCRIT 32.5 % (42-52); HEMOGLOBIN 10.7 g/dL (14.0-18.0); MEAN CORPUSCULAR HEMOGLOBIN 29.6 pg (25-34); MEAN CORPUSCULAR HGB CONC 32.9 g/dl (32-36); MEAN PLATELET VOLUME 10.1 fL (7.4-10.4); PLATELET COUNT 182 K/uL (130-400); RED CELL DISTRIBUTION WIDTH CV 13.9 % (11.5-14.5); RED CELL DISTRIBUTION WIDTH SD 46.1 fL (36.4-46.3); WHITE BLOOD COUNT 9.37 K/uL (4.8-10.8)
[2018-04-10 07:42] LABS: CALCIUM 8.3 mg/dl (8.5-10.1); CREATININE 1.03 mg/dl (0.60-1.40); POTASSIUM 4.2 mmol/L (3.5-5.1)
[2018-04-10] MEDS: BENAZEPRIL HCL 10 MG TAB PO SCH (07:42)
[2018-04-10] MEDS: MULTIVITAMIN TAB PO SCH (07:42)
[2018-04-10] MEDS: AMLODIPINE BESYLATE 5 MG TAB PO SCH (07:42)
[2018-04-10] MEDS: FINASTERIDE 5 MG TAB PO SCH (07:42)
[2018-04-10] MEDS: GABAPENTIN 300 MG CAP PO SCH ×4 (07:42→21:28)
[2018-04-10] MEDS: PANTOprazole SOD 40 MG TAB PO SCH (07:42)
[2018-04-10] MEDS: BISACODYL 5 MG TABEC PO SCH (07:46)
[2018-04-10] MEDS ORDERED: BISACODYL 5 MG TABEC ONE (07:46)
[2018-04-10 08:01] VITALS: BP 132/78; PULSE 68; TEMP 36.6; O2SAT 98
[2018-04-10] MEDS ORDERED: NURSING DECISION MEDICATION ORDER SCH (12:15)
[2018-04-10 15:07] VITALS: BP 93/58; PULSE 91; TEMP 37.1; O2SAT 92
--- NOTE | 2018-04-10 15:21 | Progress Note ---
Progress Note Date of Service Apr 10, 2018. Progress Note Patient is postop day 2. Back pain is controlled leg pain markedly improved. Vital signs stable. LUCI drain decreasing probably. On exam he is in a chair at bedside is good strength testing appears comfortable. Assessment status post lumbar decompression fusion per plan at this time will continue physical therapy advance his bowel regiment anticipate discharge home tomorrow.
[2018-04-10 16:05] VITALS: BP 102/67; PULSE 83
--- NOTE | 2018-04-10 16:51 | Progress Note ---
Internal Med Progress Note Date of Service: Apr 10, 2018. Provider Documentation: SUBJECTIVE: Ambulating independently with a walker, no fever chills, no dizzy spell or palpitation Back pain has markedly improved Resolution of radicular pain with radiating to knee and foot after spinal surgery OBJECTIVE: Vital Signs-as noted below Exam: General Appearance: WD/WN, no apparent distress ENT: hearing grossly normal, pharynx normal, + pertinent finding (mucous membranes moist) Neck: supple, trachea midline Respiratory/Chest: lungs clear, normal breath sounds, no respiratory distress Cardiovascular: regular rate, rhythm Abdomen: normal bowel sounds, non tender, soft Extremities: non-tender, normal inspection, no pedal edema Neurologic/Psychiatric: alert, normal mood/affect, oriented x 3 Skin: warm/dry, + pertinent finding (back: +drain in place with bloody drainage ) Lab data as noted below. ASSESSMENT & PLAN: LUMBAR SPINAL DECOMPRESSION FUSION 72-year-old male status post #2 lumbar decompression fusion -Recovering well postop Pain well controlled Participating in PT OT Continue management as per spinal orthopedics ACUTE BLOOD LOSS ANEMIA Hemoglobin dropped from baseline 15-to 11 -> 10.7 Due to postop status/acute blood loss during surgery Patient does not have any symptoms of dizzy spell, lightheadedness or dyspnea on exertion Monitor H&H No indication for transfusion LEUKOCYTOSIS Improved Possible secondary to intraoperative steroid No evidence of infection HYPERTENSION Borderline hypotension Does not have any symptoms of dizzy spell, lightheadedness or dyspnea on exertion Patient will continue with amlodipine/benazepril with holding parameters Was on Lasix 20 mg p.o. daily kept on hold post surgery Renal function remained stable Lasix is resumed with holding parameters for hypotension DVT PROPHYLAXIS SCD and teds Encourage ambulation Pharmacological anticoagulation avoided given recent spinal surgery DISPOSITION Patient remains medically stable- Discharge disposition per orthopedics Vital Signs: Date Time Temp Pulse Resp B/P (MAP) Pulse Ox O2 Delivery O2 Flow Rate FiO2 04/10/18 23:15 37.2 73 16 98/64 (75) 94 Room Air 04/10/18 16:05 83 102/67 (79) 04/10/18 15:40 Room Air 04/10/18 15:07 37.1 91 16 93/58 (70) 92 Room Air 04/10/18 08:01 36.6 68 18 132/78 (96) 98 Room Air 04/10/18 07:39 Room Air 04/10/18 06:37 36.7 83 17 136/79 (98) 95 Room Air Lab Results: Results Past 24 Hours Test 04/10/18 06:49 Range/Units White Blood Count 9.37 4.8-10.8 K/uL Red Blood Count 3.61 4.7-6.1 M/uL Hemoglobin 10.7 14.0-18.0 g/dL Hematocrit 32.5 42-52 % Mean Corpuscular Volume 90.0 80-100 fL Mean Corpuscular Hemoglobin 29.6 25-34 pg Mean Corpuscular Hemoglobin Concent 32.9 32-36 g/dl RDW Standard Deviation 46.1 36.4-46.3 fL RDW Coefficient of Variation 13.9 11.5-14.5 % Platelet Count 182 130-400 K/uL Mean Platelet Volume 10.1 7.4-10.4 fL Sodium Level 135 136-145 mmol/L Potassium Level 4.2 3.5-5.1 mmol/L Chloride Level 102 98-107 mmol/L Carbon Dioxide Level 25 21-32 mmol/L Anion Gap 7.0 3-11 mmol/L Blood Urea Nitrogen 13 7-18 mg/dl Creatinine 1.03 0.60-1.40 mg/dl Est Creatinine Clear Calc Drug Dose 83.4 ml/min Estimated GFR () 84.3 Estimated GFR (Non- 72.7 BUN/Creatinine Ratio 12.3 10-20 Random Glucose 179 70-99 mg/dl Calcium Level 8.3 8.5-10.1 mg/dl
[2018-04-10] MEDS: ZOLPIDEM TARTRATE 10 MG TAB PO SCH (21:28)
[2018-04-10] MEDS: SIMVASTATIN 20 MG TAB PO SCH (21:29)
[2018-04-10] MEDS: DOCUSATE SODIUM/SENNA 50/8.6MG TAB PO SCH (21:30)
[2018-04-10 23:15] VITALS: BP 98/64; PULSE 73; TEMP 37.2; O2SAT 94
[2018-04-11] MEDS: ACETAMINOPHEN 500 MG TAB PO PRN ×2 (03:53→13:00)
[2018-04-11] MEDS: OXYCODONE HCL IR 5 MG TAB (IMMEDIATE RELEASE) PO PRN ×3 (05:59→13:38)
[2018-04-11 06:19] VITALS: BP 119/72; PULSE 78; TEMP 36.3; O2SAT 96
[2018-04-11] MEDS: BISACODYL 5 MG TABEC PO SCH (07:58)
[2018-04-11] MEDS: BENAZEPRIL HCL 10 MG TAB PO SCH (07:58)
[2018-04-11] MEDS: GABAPENTIN 300 MG CAP PO SCH ×2 (07:59→12:58)
[2018-04-11] MEDS: FINASTERIDE 5 MG TAB PO SCH (07:59)
[2018-04-11] MEDS: PANTOprazole SOD 40 MG TAB PO SCH (07:59)
[2018-04-11] MEDS: MULTIVITAMIN TAB PO SCH (07:59)
[2018-04-11] MEDS: AMLODIPINE BESYLATE 5 MG TAB PO SCH (07:59)
[2018-04-11] MEDS ORDERED: FUROSEMIDE 20 MG TAB PO SCH (09:00)
[2018-04-11 11:21] VITALS: BP 119/72; PULSE 78; TEMP 36.3; O2SAT 96
--- NOTE | 2018-04-11 14:31 | Discharge Summary ---
Orthopedic Discharge Summary Admission Date/Reason Apr 08, 2018 at 07:30 Lumbar Spinal Stenosis. Discharge Date/Disposition Apr 11, 2018 Home Diagnosis Principal Diagnosis: Lumbar spinal stenosis Admission Physical Exam As per Admitting History & Physical. Hospital Course She underwent lumbar decompression fusion tolerated this well was taken to the orthopedic for postoperative. Postop day #1 is up and amatory progressive postop day #2. Postop day #3 he was discharged home. Discharge orders instructions can be found chart for further review. Discharge Instructions Please refer to the electronic Patient Visit Report (Discharge Instructions) for additional information.
== END 2018-04-11 13:46 | disposition home or self-care (01) | DRG 454 ==
LOC: C.ACU 05:21 → C.3E 07:30 → ENRESERV 11:29
PROVIDERS: ADMIT Orthopaedic Surgery Orthopaedic Surgery of the Spine; ATTEND Orthopaedic Surgery Orthopaedic Surgery of the Spine
PROC: 0SG00AJ Fusion of Lumbar Vertebral Joint with Interbody Fusion Device, Posterior Approach, Anterior Column, Open Approach (ICD-10-PCS; principal; 2018-04-08 07:45)
PROC: 0SG3071 Fusion of Lumbosacral Joint with Autologous Tissue Substitute, Posterior Approach, Posterior Column, Open Approach (ICD-10-PCS; principal; 2018-04-08 07:45)
PROC: 0ST40ZZ Resection of Lumbosacral Disc, Open Approach (ICD-10-PCS; principal; 2018-04-08 07:45)
PROC: 0ST20ZZ Resection of Lumbar Vertebral Disc, Open Approach (ICD-10-PCS; principal; 2018-04-08 07:45)
PROC: 0SG1071 Fusion of 2 or more Lumbar Vertebral Joints with Autologous Tissue Substitute, Posterior Approach, Posterior Column, Open Approach (ICD-10-PCS; principal; 2018-04-08 07:45)
PROC: 0SG30AJ Fusion of Lumbosacral Joint with Interbody Fusion Device, Posterior Approach, Anterior Column, Open Approach (ICD-10-PCS; principal; 2018-04-08 07:45)
PROC: 01NB0ZZ Release Lumbar Nerve, Open Approach (ICD-10-PCS; principal; 2018-04-08 07:45)
DX: M48.062 Spinal stenosis, lumbar region with neurogenic claudication (principal); D62 Acute posthemorrhagic anemia; I10 Essential (primary) hypertension; K21.9 Gastro-esophageal reflux disease without esophagitis; N40.0 Benign prostatic hyperplasia without lower urinary tract symptoms; E78.5 Hyperlipidemia, unspecified; Z79.899 Other long term (current) drug therapy; Z87.891 Personal history of nicotine dependence